=== PATIENT | female | born 1960 | race Caucasian/White ===

== ENCOUNTER 2019-03-19 08:30 | Day surgery (SDC) | payer OTHER ==
[2019-03-19] MEDS ORDERED: LACTATED RINGERS 1,000 ML IV.SOLN IV ONE (08:48)
[2019-03-19] MEDS ORDERED: LIDOCAINE HCL 2% PF 100MG/5ML VIAL IJ ONE (08:48)
[2019-03-19] MEDS ORDERED: PROPOFOL 200 MG/20 ML VIAL IV ONE (08:48)
--- NOTE | 2019-04-02 17:01 | GI Report ---
DATE OF PROCEDURE: 03/19/2019 REFERRING PHYSICIAN: Dr. Avalos. PROCEDURE PERFORMED: Colonoscopy. SURGEON: Ria Zaragoza M.D., [place] INDICATION FOR PROCEDURE: This 58-year-old woman is referred for colonoscopy. She apparently had 2 small polyps back in 2013 that were benign. She denies family history of colorectal cancer. She has had atrial fibrillation in the past that is converted at present. No change of bowel habits. PROCEDURE MEDICATION: Propofol, as per Anesthesia. DESCRIPTION OF PROCEDURE: The Olympus video colonoscope was advanced through the rectum. In the sigmoid some small diverticula. The colonoscope was advanced all the way to the cecum. The appendiceal orifice and terminal ileum were normal. On slow withdrawal, the cecum, ascending colon and transverse colon, no obvious intraluminal lesions were noted. In the descending colon and sigmoid, again no obvious intraluminal lesions noted except for a few small diverticula in the sigmoid. Retroflexion in the rectum was normal. The patient tolerated the procedure well. FINDINGS: Mild diverticular disease sigmoid colon. No polyps or other lesions were noted. RECOMMENDATIONS: 1. High fiber diet. 2. Consider relook at her colon again in 10 years, sooner if clinically indicated. RIA ZARAGOZA M.D., YandelPBassem PEÑA/yohannes R: 03/20/19 Job#: [id number] Cc: Dr. Avalos ] MTDD
== END 2019-03-19 10:47 | disposition home or self-care (01) ==
LOC: OPSURG 08:30
PROVIDERS: ATTEND Internal Medicine Gastroenterology
DX: Z12.11 Encounter for screening for malignant neoplasm of colon (principal); Z86.010 Personal history of colon polyps; K57.30 Diverticulosis of large intestine without perforation or abscess without bleeding
CPT/HCPCS: 45378; J2001; J2704; J7120